=== PATIENT | female | born 1950 | race American Indian/Alaskan Native ===

== ENCOUNTER 2023-01-29 21:21 | Emergency (ER) | payer MEDICARE, MEDICAID, SELFPAY ==
[2023-01-29] VITALS (9 sets, daily range): BP systolic 138–200; BP diastolic 64–100; PULSE 71–98; RESP 20–27; TEMP 37; O2SAT 95–98; BMI 41.0
[2023-01-29] MEDS: FAMOTIDINE 20 MG/2 ML VIAL IV (21:41)
[2023-01-29] MEDS: diphenhydrAMINE 50 MG/ML VIAL (21:44)
[2023-01-29] MEDS: DEXAMETHASONE 10 MG/ML VIAL IV (21:48)
--- NOTE | 2023-01-29 22:27 | ED.ALLEREA ---
HPI - Allergic Reaction General Chief complaint: Allergic Reaction Stated complaint: possible allergic rxn, throat closing Time Seen by Provider: 01/29/23 21:42 Source: patient Mode of arrival: Ambulatory History of Present Illness HPI narrative: 72-year-old female nonsmoker without significant chronic medical history presents with family in the chief complaint of a sensation of swelling in her throat. She denies any runny nose or throat pain. She is had no rash no trouble breathing no face, tongue or lip swelling. She denies any new foods or lotions, no bee stings or insect bites. She is never had a reaction like this in the past. She states that she felt some odd sensation on her lips earlier today and then was eating some [place] food with a family member and soon thereafter felt a globus sensation in her throat. She denies any chance that something may have become stuck in her throat. She has been able to drink water without difficulty. Related Data Allergies Allergy/AdvReac Type Severity Reaction Status Date / Time Sulfa (Sulfonamide Allergy Wheezing Verified 01/29/23 21:28 Antibiotics) Review of Systems Review of Systems Narrative: GENERAL: Denies chills, fatigue, malaise, fever, sweats. HEENT: See HPI RESPIRATORY: Denies dyspnea, cough, wheezing, hemoptysis, sputum. CARDIOVASCULAR: Denies chest pain, palpitations, orthopnea, edema, GASTROINTESTINAL: Denies nausea, vomiting, abdominal pain, diarrhea, constipation, melena. : Denies dysuria, frequency, incontinence, hematuria, urinary retention. MUSCULOSKELETAL: denies weakness, joint pain, or bony pain SKIN: Denies rash, skin lesions, or other NEUROLOGIC: Denies weakness, headache, numbness, change in speech, confusion, seizures, incoordination. PSYCHIATRIC: No concerning psychosocial issues. 12 point review of systems is negative except for those stated above Patient History Social History Smoking Status: Never smoker Smoking Status: Never smoker Substance Use Type: marijuana Exam Narrative Exam Narrative: GENERAL: [72] year old patient appears stated age. Well-developed patient, in mild distress. HEAD: Atraumatic. Normocephalic. EYES: Pupils equal round and reactive. Extraocular motions intact. No scleral icterus. No injection or drainage. ENT: No face, tongue or lip swelling, moist mucous membranes, airway patent Nose without bleeding, purulent drainage. Throat without erythema, tonsillar hypertrophy or exudate. Airway patent. NECK: Trachea midline. Non tender CARDIOVASCULAR: Regular rate and rhythm without murmurs, gallops, or rubs. RESPIRATORY: Clear to auscultation. Breath sounds equal bilaterally. No wheezes, rales, or rhonchi. GASTROINTESTINAL: Abdomen soft, non-tender, nondistended. EXTREMITIES: No edema or joint tenderness. BACK: Nontender without deformity or crepitance. No flank tenderness. NEURO: AOx3. SKIN: No rash or erythema of visible areas, no hives Initial Vital Signs Initial Vital Signs: Vital Signs Temperature 98.6 F 01/29/23 21:24 Pulse Rate 98 H 01/29/23 21:24 Respiratory Rate 20 01/29/23 21:24 Blood Pressure 200/95 H 01/29/23 21:24 Pulse Oximetry 97 01/29/23 21:24 Oxygen Delivery Method Room Air 01/29/23 21:24 Course Orders Ordered: ED Orders 01/30/23 00:47 XR soft tissue neck Stat Discontinued Medications Dexamethasone (Dexamethasone 10 Mg/Ml Vial) 10 mg IV NOW ONE Stop: 01/29/23 21:43 Last Admin: 01/29/23 21:48 Dose: 10 mg Documented By: ANDREW Vital Signs Vital signs: Vital Signs - 8 hr 01/29/23 21:24 01/29/23 21:41 01/29/23 21:43 Temperature 98.6 F Pulse Rate 98 H 92 H Respiratory Rate 20 25 H Blood Pressure 200/95 H 174/100 H Pulse Oximetry 97 98 Oxygen Delivery Method Room Air 01/29/23 21:43 01/29/23 22:00 01/29/23 22:00 Temperature Pulse Rate 91 H 85 Respiratory Rate 24 25 H Blood Pressure 172/86 H Pulse Oximetry 96 97 Oxygen Delivery Method 01/29/23 22:13 01/29/23 22:13 01/29/23 22:30 Temperature Pulse Rate 83 Respiratory Rate 23 Blood Pressure 180/88 H 181/76 H Pulse Oximetry 97 Oxygen Delivery Method 01/29/23 22:30 01/29/23 22:38 01/29/23 23:00 Temperature Pulse Rate 81 81 Respiratory Rate 24 20 Blood Pressure 160/74 H Pulse Oximetry 97 97 Oxygen Delivery Method 01/29/23 23:00 01/30/23 01:00 01/29/23 23:30 Temperature Pulse Rate 76 80 Respiratory Rate 22 20 Blood Pressure 159/70 H 138/64 Pulse Oximetry 96 97 Oxygen Delivery Method Room Air 01/29/23 23:30 01/30/23 00:00 01/30/23 00:00 Temperature Pulse Rate 71 61 Respiratory Rate 27 H 23 Blood Pressure 133/60 Pulse Oximetry 95 95 Oxygen Delivery Method 01/30/23 00:30 01/30/23 00:30 01/30/23 01:01 Temperature Pulse Rate 64 60 Respiratory Rate 21 Blood Pressure 133/63 Pulse Oximetry 97 97 Oxygen Delivery Method 01/30/23 01:30 01/30/23 02:00 Temperature Pulse Rate 59 L 57 L Respiratory Rate 21 23 Blood Pressure 136/60 Pulse Oximetry 94 94 Oxygen Delivery Method MDM - Allergic Reaction MDM Narrative Medical decision making narrative: CC: 72-year-old female with swelling sensation in her throat Complicating co-morbidities: Age Data collected from: Patient Medical records reviewed: Prior notes reviewed in our EMR Differential considered, but not limited to: Allergic reaction versus pharyngitis versus foreign body versus other Exam documented above, pertinent findings include: No tongue, lip, face swelling, no wheezing or difficulty breathing, no rash Independently reviewed EKG as above Imaging studies independently reviewed: Soft tissue of the neck without abnormal findings Treatments: Dexamethasone, Pepcid, diphenhydramine Re-evaluations: Patient resting comfortably for duration of visit, certainly no evolution of symptoms Discussion: Patient presents with a sensation of fullness in her throat in the absence of other allergic-type symptoms, she is tolerating orals without difficulty, no respiratory distress, no rash, no GI symptoms. Her airway is patent, she is controlling secretions. Imaging without any significant findings. No signs of anaphylaxis. Patient denies any sensation of food bolus or temporal relationship between eating and this. Patient is appropriate for discharge, will give allergic reaction instructions Disposition: see below, along with detailed discharge instructions that have been reviewed with patient as well as indications for ED re-evaluation and additional outpatient follow up Discharge Plan Departure Patient Disposition: Home Clinical Impression: Allergic reaction Instructions: DI for General Allergic Reactions Activity Restrictions/Additional Instructions: *You have been diagnosed with [allergic reaction] *What to do: *Please continue to take your regular medications as directed. *Please consider the routine use of over the counter antihistamines over the next few days 1. H1 blockers: Benadryl (Diphenhydramine), Zyrtec (Cetirizine), Ania (Fexofenadine) or Claritin (Loratadine) along with, 2. H2 blockers: Famotidine or Cimetidine *If you can please avoid what triggered your reaction today *Please follow up with your primary care provider in 2-3 days, call for an appointment. Let them know you were seen in the Emergency Department and that we ask that you be seen in follow up. We will electronically transmit a record of today's note if your PCP is in our system *If you do not have a primary care provider please contact the [facility] Resource line at [phone]. They will ask some questions about your medical history and help get you set up with a doctor in the community. *Return to Emergency Department if you should have any new, worsening or concerning symptoms, such as swelling of tongue, throat, trouble breathing, or other concerning symptoms Stand Alone Forms: Patient Portal/API
[2023-01-30] VITALS: BP 133/60; PULSE 61; RESP 23; O2SAT 95
[2023-01-30 00:30] VITALS: BP 133/63; PULSE 64; RESP 21; O2SAT 97
--- NOTE | 2023-01-30 00:47 | DI.RAD.S_ITS ---
PROCEDURE: XR SOFT TISSUE NECK INDICATIONS: globus sensation in throat TECHNIQUE: 2 views of the neck were acquired. COMPARISON: None. FINDINGS: Airway: The airway appears patent. Soft tissues: Prevertebral soft tissues are normal in thickness. The epiglottis and aryepiglottic folds appear normal. No soft tissue gas. The airway appears patent. No radiopaque foreign bodies. Bones: No suspicious bony lesions. Visualized cervical spine demonstrates multilevel degenerative disc disease and facet joint arthropathy. IMPRESSION: 1. No radiopaque foreign body. 2. Airway appears patent. Dictated by: Dusty Wilkerson M.D. on 01/30/2023 at 1:49 Approved by: Dusty Wilkerson M.D. on 01/30/2023 at 1:50
[2023-01-30 01:00] VITALS: BP 159/70; PULSE 80; RESP 20; O2SAT 97
[2023-01-30 01:01] VITALS: PULSE 60; O2SAT 97
[2023-01-30 01:30] VITALS: BP 136/60; PULSE 59; RESP 21; O2SAT 94
[2023-01-30 02:00] VITALS: PULSE 57; RESP 23; O2SAT 94
== END 2023-01-30 02:36 | disposition home or self-care (01) ==
PROVIDERS: Emergency Provider Emergency Medicine
DX: T78.40XA Allergy, unspecified, initial encounter (principal); R20.2 Paresthesia of skin
CPT/HCPCS: 70360; 96374; 96375; 99284; J1100; J1200

== ENCOUNTER 2025-04-11 14:32 | Observation (INO) | payer MEDICARE, MEDICAID, SELFPAY ==
[2025-04-11] VITALS (15 sets, daily range): BP systolic 118–187; BP diastolic 56–99; PULSE 69–114; RESP 16–27; TEMP 35.9–36.8; O2SAT 95–99; BMI 42.9
[2025-04-11] MEDS: EPINEPHrine 1 MG/ML 0.3 MG IM (14:41)
[2025-04-11] MEDS: FAMOTIDINE 20 MG/2 ML VIAL IV (14:41)
[2025-04-11] MEDS: methylPREDNISolone succ 125 MG/2 ML VIAL IV (14:42)
--- NOTE | 2025-04-11 14:44 | ED_ITS ---
HPI - Allergic Reaction General Chief complaint: Allergic Reaction Stated complaint: allergic reaction Time Seen by Provider: 04/11/25 14:32 History of Present Illness HPI narrative: Ms. 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 She is allergic to crab, mushroom, sulfa antibiotics. Patient was eating a Thanksgiving meal when she started developing swelling sensation in her throat, hives on her abdomen and back and shortness of breath. Reports that she has experienced these symptoms in the past due to food allergy, she is unsure what food may have triggered it today but possibly stuffing. Stated that she hoped the symptoms would go away on their own however they did not so EMS was called. She received 50 mg of oral Benadryl and 0.3 mg IM epinephrine via EMS she then received a second 0.3 mg IM epinephrine 5 minutes later. Her symptoms improved significantly, hives resolved and breathing normalized. However since coming into the emergency department from the ambulance bay her symptoms have started to return, it has now been 2.5 hours since the food allergen was consumed. At this time she is speaking in clear sentences, she does have some audible inspiratory wheezing and she does have urticaria on her abdomen. She reports that she was in her normal state of health prior to the consumption of the food allergen and she was not experiencing any chest pain, shortness of breath or flu-like symptoms. She denies chest pain, abdominal pain, fevers, chills, dysuria, constipation, diarrhea, nausea, vomiting. Reports that she has not had an episode like this in over a year. She does not smoke cigarettes or drink alcohol. Related Data Home Medications ?Medication ?Instructions ?Recorded ?Confirmed albuterol sulfate 90 mcg/actuation 2 puff inhalation Q 4H PRN 04/11/25 04/11/25 aerosol inhaler (Ventolin HFA) shortness of breath or wheezing ergocalciferol (vitamin D2) 1,250 1,250 mcg PO QWEEK 1 06/11/24 04/11/25 mcg (50,000 unit) capsule (Vitamin D2) lisinopril 5 mg tablet 10 mg PO .QD Hypertension 04/11/25 mupirocin 2 % topical ointment 1 applic topical .QD Cu t on wrists 04/11/25 04/11/25 Allergies Allergy/AdvReac Type Severity Reaction Status Date / Time crab Allergy Unknown Verified 04/11/25 14:40 mushroom Allergy Unknown Verified 04/11/25 14:40 Sulfa (Sulfonamide Allergy Wheezing Verified 04/11/25 14:40 Antibiotics) Review of Systems Review of Systems ROS Unobtainable: All systems reviewed & are unremarkable except as noted in HPI and below Patient History Social History household members: none Smoking Status: Never smoker alcohol intake: never Exam Narrative Exam Narrative: GENERAL: 75 year old patient appears stated age. Obese patient, in mild distress, speaking in clear full sentences and protecting her own airway. HEAD: Atraumatic. Normocephalic. EYES: No scleral icterus. No injection or drainage. ENT: Uvula midline, posterior oropharynx clear. No lip tongue or face swelling. NECK: Trachea midline. Cervical ROM intact. No auditory stridor. CARDIOVASCULAR: Increased rate and regular rhythm. RESPIRATORY: ?Patient is breathing with increased rate. Audible inspiratory wheezing present. NEURO: Alert and oriented, answers all questions appropriately and is able to provide her own clear history. SKIN: Band of urticaria across the abdomen. Initial Vital Signs Initial Vital Signs: Vital Signs Pulse Rate 114 H 04/11/25 14:35 Pulse Oximetry 99 04/11/25 14:35 Course Orders Ordered: ED Orders 04/11/25 14:23 Magnesium Stat 04/11/25 14:27 CBC Auto Diff [Complete Blood Count AUTO DIFF] Stat CMP [Comprehensive Metabolic Panel] Stat Troponin & CK Cardiac Panel Stat 04/11/25 14:45 XR chest 1V Stat Albuterol (Albuterol 2.5 Mg/3 Ml Neb (Adult)) 2.5 mg INH [id number] PRN PRN Reason: home medication prn Diphenhydramine HCl (Diphenhydramine 25 Mg Tablet) 50 mg PO BEDTIME MONIKA Last Admin: 04/11/25 20:51 Dose: 50 mg Documented By: Lisinopril (Lisinopril 5 Mg Tablet) 10 mg PO DAILY MONIKA Last Admin: 04/11/25 18:36 Dose: Not Given Documented By: CEW Methylprednisolone (Methylprednisolone Succ 125 Mg/2 Ml Vial) 60 mg IV Q6HR [facility] Naloxone HCl (Naloxone 0.4 Mg/Ml Vial) 0.2 mg IV Q2MIN PRN PRN Reason: Opiate Reversal Discontinued Medications Albuterol (Albuterol 2.5 Mg/3 Ml Neb (Adult)) 2.5 mg INH [id number] [facility] Last Admin: 04/11/25 21:02 Dose: Not Given Documented By: MS Diphenhydramine HCl (Diphenhydramine 25 Mg Tablet) 50 mg PO 1999 [facility] Epinephrine HCl (Epinephrine 1 Mg/Ml) 0.3 mg IM NOW ONE Stop: 04/11/25 14:38 Last Admin: 04/11/25 14:41 Dose: 0.3 mg Documented By: BZ Famotidine (Famotidine 20 Mg/2 Ml Vial) 20 mg IV NOW [facility] Last Admin: 04/11/25 14:41 Dose: 20 mg Documented By: BZ Sodium Chloride (Normal Saline 0.9%) 500 mls @ 1,000 mls/hr IV BOLUS ONE Stop: 04/11/25 16:23 Last Infusion: 04/11/25 16:54 Dose: Infused Documented By: Admin: 04/11/25 16:18 Dose: 1,000 mls/hr Documented By: ES Methylprednisolone (Methylprednisolone Succ 125 Mg/2 Ml Vial) 125 mg IV NOW ONE Stop: 04/11/25 14:38 Last Admin: 04/11/25 14:42 Dose: 125 mg Documented By: KARENA Naproxen (Naproxen 250 Mg Tablet) 500 mg PO NOW ONE Stop: 04/11/25 20:10 Last Admin: 04/11/25 20:51 Dose: 500 mg Documented By: MS Vital Signs Vital signs: Vital Signs - 8 hr 04/11/25 14:54 04/11/25 14:54 04/11/25 15:00 Pulse Rate 91 H 88 Respiratory Rate 19 Blood Pressure 124/99 H Pulse Oximetry 99 98 04/11/25 15:01 04/11/25 15:01 04/11/25 15:15 Pulse Rate 89 Respiratory Rate 23 Blood Pressure 126/60 136/57 L Pulse Oximetry 98 04/11/25 15:15 04/11/25 15:30 04/11/25 15:30 Pulse Rate 90 86 Respiratory Rate 27 H 22 Blood Pressure 132/59 L Pulse Oximetry 97 98 04/11/25 15:45 04/11/25 15:45 04/11/25 16:00 Pulse Rate 83 81 Respiratory Rate 24 23 Blood Pressure 125/58 L Pulse Oximetry 98 97 04/11/25 16:00 04/11/25 16:15 04/11/25 16:15 Pulse Rate 81 Respiratory Rate 24 Blood Pressure 119/59 L 124/56 L Pulse Oximetry 98 MDM - Allergic Reaction Medical Records Attestation: I reviewed the patient's medical records. Lab Data 04/11/25 14:27 04/11/25 14:27 Labs: Lab Results 04/11/25 04/11/25 Range/Units 14:23 14:27 WBC 10.6 (4.5-11.0) X10^3/uL RBC 4.86 (4.0-5.2) X10^6/uL Hgb 13.5 (12.0-16.0) g/dL Hct 40.8 (36-46) % MCV 84.0 (80-100) fL MCH 27.8 (26-34) PG MCHC 33.1 (30-36) % RDW 14.6 (11.6-14.8) % Plt Count 367 (150-400) X10^3/uL Neut % (Auto) 59.4 (50-75) % Lymph % (Auto) 31.2 (25-40) % Dent % (Auto) 5.2 (3-14) % Eos % (Auto) 3.7 (2-4) % Baso % (Auto) 0.5 (0-2) % Neut # (Auto) 6300 (2019-3002) /uL Lymph # (Auto) 3300 (2504-8297) /uL Dent # (Auto) 600 (0-900) /uL Eos # (Auto) 400 (0-450) /uL Baso # (Auto) 100 (0-100) /uL Sodium 143 (137-145) mmol/L Potassium 3.2 L (3.4-5.1) mmol/L Chloride 107 (98-107) mmol/L Carbon Dioxide 23 (22-32) mmol/L BUN 20 H (7-17) mg/dL Creatinine 1.07 H (0.52-1.04) mg/dL Estimated GFR 54 L (>60) mL/min BUN/Creatinine Ratio 18.7 (6-22) Glucose 200 H (70-99) mg/dL Calcium 9.2 (8.4-10.2) mg/dL Magnesium 1.8 (1.6-2.3) mg/dL Total Bilirubin 0.6 (0.2-1.3) mg/dL AST 52 H (14-36) IU/L ALT 31 (<35) IU/L Alkaline Phosphatase 143 H (38-126) U/L Total Creatine Kinase 115 (30-135) U/L Troponin I < 0.012 (0.01-0.034) ng/mL Total Protein 7.4 (6.3-8.2) g/dL Albumin 4.5 (3.5-5.0) g/dL Globulin 2.9 (1.7-4.1) g/dL Albumin/Globulin Ratio 1.6 (1.0-2.8) Imaging Data Chest x-ray: Radiologist's Impression: PROCEDURE: XR CHEST 1V INDICATIONS: allergic reaction TECHNIQUE: One view of the chest was acquired. COMPARISON: None. FINDINGS: Surgical changes and devices: None. Lungs and pleura: Lungs are clear. No pleural effusions or pneumothorax. Mediastinum: Mediastinal contours appear normal. Heart size is normal. Bones and chest wall: No suspicious bony lesions. Overlying soft tissues appear unremarkable. IMPRESSION: No acute cardiopulmonary abnormality is seen. Approved by: Miguel Villatoro M.D. on 04/11/2025 at 15:18 ECG Data Interpretation: ECG reveals sinus rhythm with occasional PVCs with a rate of 94 beats per minute. QTC is 475. Left axis deviation. No prior EKGs available. 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 Differential diagnosis includes but is not limited to anaphylaxis, allergic reaction, angioedema, etc. On exam the patient is in mild distress with increased respiratory rate but is protecting her own airway. VS reveal elevated BP 187/83, HR 90, RR 22, temp 97.8, O2 98 on RA. She has received 0.3 mg IM epinephrine twice via EMS, 500 mL IV fluids, 50 mg p.o. Benadryl. Case immediately discussed with the attending physician Dr. Cronin. Her symptoms had resolved but are now starting to come back we will treat again with 0.3 mg IM epinephrine, 125 IV Solu-Medrol, 20 mg IV Pepcid. 1455: Examined patient shortly after receiving medications. Auditory inspiratory wheezing has resolved, lung trinh are clear to auscultation and no stridor is auscultated. She still feels as though she has raspy voice. 1510: Patient in no acute distress, vital signs within normal limits. Labs reveal normal WBC count 10.6, hemoglobin 13.5 hematocrit 40.8. Platelets 367. CMP does reveal normal sodium 143 with a decreased potassium 3.2, elevated BUN 20 creatinine 1.07 with a GFR 54, no prior labs available. Glucose 200. Slight elevation AST 52 alkaline phosphatase 143. Troponin is undetectable. Chest x-ray reveals no acute cardiopulmonary abnormality. 1545: About 1 hour after last epi dose, patient is resting at this time. Discussed with attending Dr. Nair, will call for admission for patient due to multiple required doses of epi. 1625: Discussed case with hospitalist Dr. Angeles, who graciously agrees to admit the patient to observation for anaphylaxis requiring 3 doses of IM epinephrine. Patient is stable at this time, up-to-date on care of plan, agreeable to admission and stable for transfer to the floor. Discharge Plan Departure Patient Disposition: Admitted as Observation Clinical Impression: Hypokalemia Anaphylaxis Qualifiers: Encounter type: initial encounter Qualified Code(s): T78.2XXA - Anaphylactic shock, unspecified, initial encounter Admit Date/Time: 04/11/25 16:24 Admit Provider: Oscar Angeles
[2025-04-11 15:05] LABS: Add Manual Diff / Slide Review NO; Hematocrit 40.8 % (36-46); Hemoglobin 13.5 g/dL (12.0-16.0); Lymphocytes Absolute Auto 3300 /uL (1100-4500); Mean Corpuscular HGB Conc 33.1 % (30-36); Mean Corpuscular Hemoglobin 27.8 PG (26-34); Mean Corpuscular Volume 84.0 fL (80-100); Platelet Count 367 X10^3/uL (150-400)
--- NOTE | 2025-04-11 15:05 | PC.NURSE ---
Pt presents with sob and wheezing, diffuse hives to abdomen and back, and dizziness while ambulating from EMS stretcher. Pt denies any chest pain or nausea. Hives are red, inflamed and itchy. Endorses feeling slightly better after IV meds and third epi injection.
[2025-04-11 15:19] LABS: Alanine Aminotransferase 31 IU/L (<35); Albumin 4.5 g/dL (3.5-5.0); Albumin Globulin Ratio 1.6 (1.0-2.8); Alkaline Phosphatase 143 U/L (38-126); Blood Urea Nitrogen 20 mg/dL (7-17); Calcium 9.2 mg/dL (8.4-10.2); Carbon Dioxide 23 mmol/L (22-32); Chloride 107 mmol/L (98-107); Creatine Kinase 115 U/L (30-135); Estimated Glomerular Filt Rate 54 mL/min (>60); Globulin 2.9 g/dL (1.7-4.1); Glucose 200 mg/dL (70-99); HEMOLYSIS < 15 (0-50); Potassium 3.2 mmol/L (3.4-5.1); Sodium 143 mmol/L (137-145); Total Protein 7.4 g/dL (6.3-8.2)
[2025-04-11 15:30] LABS: Troponin I < 0.012 ng/mL (0.01-0.034)
[2025-04-11 15:42] LABS: Magnesium 1.8 mg/dL (1.6-2.3)
[2025-04-11] MEDS: SODIUM CHLORIDE 0.9% 500 ML 1000 ML IV (16:18)
--- NOTE | 2025-04-11 17:50 | PM.HP.1 ---
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 She had a Thanksgiving dinner with family today and then developed acute urticaria followed by wheezing and facial swelling. She received 2 doses of epinephrine in the field and another in the emergency department. She was also given steroids and Pepcid. She had no angioedema of the lips or tongue. She does have a lifelong history of asthma but has never been allergy tested in the past. There was no obvious shellfish it or mushrooms and her meal today, although she was wondering about the suffering. She was mostly improved upon arrival to the [facility]. She was visiting from [facility]. ROS: All else reviewed and otherwise unremarkable except as noted in the history and physical. NAD, alert and oriented, fluent speech, calm. No urticaria or angioedema. Normocephalic skull, EOMI, anicteric sclera, symmetric pupils. Oropharynx unremarkable, no droop. Neck supple, midline trachea, no adenopathy. Lungs with mild wheezing, normal rate and effort. Heart regular, no murmur gallop or rub. Abdomen is soft, non distended and non tender. Extremities are free of edema. Skin is free of rash or lesions. Joints are not swollen or deformed. Judgment appears to be normal. IMAGING: CXR: clear. A/P: 1. Severe allergic reaction with urticaria and angioedema, improving. 2. Asthma with lab mild exacerbation, active. 3. Hypertension, active. 4. Morbid obesity with BMI of 42, active. PLAN: -Benadryl q.6 hours, 50 p.o.. -methylprednisolone 60 mg q.6 hours. -telemetry. -Albuterol nebulizers as needed. -continue lisinopril per her request. Anticipate 1 night in the hospital, supports observation status. Full resuscitation. [facility] Social History household members: none Smoking Status: Never smoker alcohol intake: never Meds Home Medications and Allergies Home Medications ?Medication ?Instructions ?Recorded ?Confirmed ?Type albuterol sulfate 90 mcg/actuation 2 puff inhalation Q4H PRN 04/11/25 04/11/25 History aerosol inhaler (Ventolin HFA) shortness of breath or wheezing ergocalciferol (vitamin D2) 1,250 1,250 mcg PO QWEEK 04/11/25 04/11/25 History mcg (50,000 unit) capsule (Vitamin D2) lisinopril 5 mg tablet 10 mg PO .QD Hypertension 04/11/25 04/11/25 History mupirocin 2 % topical ointment 1 applic topical .QD Cut on wrists 04/11/25 04/11/25 History Allergies Allergy/AdvReac Type Severity Reaction Status Date / Time crab Allergy Unknown Verified 04/11/25 14:40 mushroom Allergy Unknown Verified 04/11/25 14:40 Sulfa (Sulfonamide Allergy Wheezing Verified 04/11/25 14:40 Antibiotics) Exam Vital Signs (past 8 hours): - 04/11/25 14:35 04/11/25 14:39 04/11/25 14:54 Temperature 97.8 F Pulse Rate 114 H 90 91 H Respiratory Rate 22 Blood Pressure 187/83 H Pulse Oximetry 99 98 99 Oxygen Delivery Method Room Air 04/11/25 14:54 04/11/25 15:00 04/11/25 15:01 Temperature Pulse Rate 88 Respiratory Rate 19 Blood Pressure 124/99 H 126/60 Pulse Oximetry 98 Oxygen Delivery Method 04/11/25 15:01 04/11/25 15:15 04/11/25 15:15 Temperature Pulse Rate 89 90 Respiratory Rate 23 27 H Blood Pressure 136/57 L Pulse Oximetry 98 97 Oxygen Delivery Method 04/11/25 15:30 04/11/25 15:30 04/11/25 15:45 Temperature Pulse Rate 86 Respiratory Rate 22 Blood Pressure 132/59 L 125/58 L Pulse Oximetry 98 Oxygen Delivery Method 04/11/25 15:45 04/11/25 16:00 04/11/25 16:00 Temperature Pulse Rate 83 81 Respiratory Rate 24 23 Blood Pressure 119/59 L Pulse Oximetry 98 97 Oxygen Delivery Method 04/11/25 16:15 04/11/25 16:15 04/11/25 16:30 Temperature Pulse Rate 81 87 Respiratory Rate 24 23 Blood Pressure 124/56 L Pulse Oximetry 98 99 Oxygen Delivery Method 04/11/25 16:30 04/11/25 16:45 04/11/25 16:45 Temperature Pulse Rate 90 Respiratory Rate Blood Pressure 150/69 H 153/72 H Pulse Oximetry 97 Oxygen Delivery Method 04/11/25 16:50 Temperature 96.6 F L Pulse Rate 89 Respiratory Rate 18 Blood Pressure 154/69 H Pulse Oximetry 96 Oxygen Delivery Method Oxygen Delivery Method Room Air Objective Labs 04/11/25 14:27 04/11/25 14:27 Labs: Laboratory Results - last 24 hr 04/11/25 04/11/25 14:23 14:27 WBC 10.6 RBC 4.86 Hgb 13.5 Hct 40.8 MCV 84.0 MCH 27.8 MCHC 33.1 RDW 14.6 Plt Count 367 Neut % (Auto) 59.4 Lymph % (Auto) 31.2 [place] % (Auto) 5.2 Eos % (Auto) 3.7 Baso % (Auto) 0.5 Neut # (Auto) 6300 Lymph # (Auto) 3300 [place] # (Auto) 600 Eos # (Auto) 400 Baso # (Auto) 100 Sodium 143 Potassium 3.2 L Chloride 107 Carbon Dioxide 23 BUN 20 H Creatinine 1.07 H Estimated GFR 54 L BUN/Creatinine Ratio 18.7 Glucose 200 H Calcium 9.2 Magnesium 1.8 Total Bilirubin 0.6 AST 52 H ALT 31 Alkaline Phosphatase 143 H Total Creatine Kinase 115 Troponin I < 0.012 Total Protein 7.4 Albumin 4.5 Globulin 2.9 Albumin/Globulin Ratio 1.6 Assessment & Plan Time-Based Coding :: [TOTAL MINUTES] spent with patient and on the chart (including review of chart, obtaining history, exam, reviewing outside data, placing orders, documenting exam and treatment plan, and counseling patient) on [DATE]. Quality VTE Deep Vein Thrombosis/Pulmonary Embolism Present on Admission: No
--- NOTE | 2025-04-11 19:22 | RT ---
Pt home medication is Albuterol Q4PRN and asked to change from scheduled neb to prn. Pt 96% RA, 89 HR, 18 RR crackles at the bases. Pt states she will call if needs a treatment.
[2025-04-11] MEDS: diphenhydrAMINE 25 MG TABLET 50 MG PO (20:51)
[2025-04-11] MEDS: NAPROXEN 250 MG TABLET 500 MG PO (20:51)
[2025-04-12 04:00] VITALS: BP 150/81; PULSE 76; RESP 22; TEMP 36.6; O2SAT 97
--- NOTE | 2025-04-12 04:22 | PC.NURSE ---
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 Notified Night hospitalist and got a verbal ok to leave IV out until discharge. research biostatistician aware.
[2025-04-12 08:00] VITALS: BP 112/58; PULSE 68; RESP 16; TEMP 36.6; O2SAT 97
--- NOTE | 2025-04-12 08:26 | PM.DS.1 ---
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 She had a Thanksgiving dinner with family today and then developed acute urticaria followed by wheezing and facial swelling. She received 2 doses of epinephrine in the field and another in the emergency department. She was also given steroids and Pepcid. She had no angioedema of the lips or tongue. She does have a lifelong history of asthma but has never been allergy tested in the past. There was no obvious shellfish it or mushrooms and her meal today, although she was wondering about the suffering. She was mostly improved upon arrival to the [facility]. She was visiting from [facility]. [N], the patient has documentation of a left ventricle ejection fracture less than or equal to 40%, or moderately or severely reduced left ventricle systolic function. [N], the patient has a history of heart transplant or left ventricular assist device (LVAD). [N], the patient was prescribed an RAMY inhibitor at discharge or is already being taken. The patient was not prescribed an RAMY-inhibitor because of the following exception: NA [N], the patient was prescribed Metoprolol succinate, bisoprolol, or carvedilol at discharge. The patient was not prescribed Metoprolol succinate, bisoprolol, or carvedilol at discharge because of the following exception: NA Anticipate 1 night in the hospital, supports observation status. Full resuscitation. Discharge Providers Provider Date of admission: 04/11/25 16:24 Discharge Date: 04/12/25 Consults: None Discharge provider: Oscar Angeles MD Summary Hospital Course Discharge Diagnosis: 1. Severe allergic reaction with urticaria and angioedema, improving. 2. Asthma with lab mild exacerbation, active. 3. Hypertension, active. 4. Morbid obesity with BMI of 42, active. Hospital Course: She was admitted and treated with steroids and Benadryl. She improved overnight. On the morning of discharge her lungs were clear and she had no other symptoms. She was stable for discharge home. She will take oral prednisone for 4 more days in his given a prescription for EpiPen. She will follow up with her PCP next Thursday to catch them up and recheck her blood pressures. Status at Discharge Cognitive/behavioral status at discharge: oriented Functional status at discharge: independent ambulation Overall status at discharge: patient is back to baseline Time Spent with Patient Time spent: Greater than 30 minutes Exam Vital Signs (past 8 hours): - 04/12/25 04:00 Temperature 98 F Pulse Rate 76 Respiratory Rate 22 Blood Pressure 150/81 H Pulse Oximetry 97 Oxygen Flow Rate 0 Oxygen Delivery Method Room Air Oxygen Flow Rate 0 Narrative Exam Narrative: NAD, alert and oriented. Fluent speech. Lungs are clear, normal rate and effort. Heart is regular, no murmur gallop or rub. Abdomen is soft, non distended. Extremities are free of edema. Objective Imaging Chest x-ray: Radiologist's impression: Clear Labs 04/11/25 14:27 04/11/25 14:27 Labs: Laboratory Results - last 24 hr 04/11/25 04/11/25 14:23 14:27 WBC 10.6 RBC 4.86 Hgb 13.5 Hct 40.8 MCV 84.0 MCH 27.8 MCHC 33.1 RDW 14.6 Plt Count 367 Neut % (Auto) 59.4 Lymph % (Auto) 31.2 [place] % (Auto) 5.2 Eos % (Auto) 3.7 Baso % (Auto) 0.5 Neut # (Auto) 6300 Lymph # (Auto) 3300 [place] # (Auto) 600 Eos # (Auto) 400 Baso # (Auto) 100 Sodium 143 Potassium 3.2 L Chloride 107 Carbon Dioxide 23 BUN 20 H Creatinine 1.07 H Estimated GFR 54 L BUN/Creatinine Ratio 18.7 Glucose 200 H Calcium 9.2 Magnesium 1.8 Total Bilirubin 0.6 AST 52 H ALT 31 Alkaline Phosphatase 143 H Total Creatine Kinase 115 Troponin I < 0.012 Total Protein 7.4 Albumin 4.5 Globulin 2.9 Albumin/Globulin Ratio 1.6 [facility] Social History household members: none Smoking Status: Never smoker alcohol intake: never Discharge Assessment & Plan Assessment and Plan Plan of Treatment: Discharge home, prednisone 50 daily for 4 additional days. Continue other medications without change. An EpiPen Rx is also provided. Follow up with PCP next Thursday and continue to monitor blood pressures in the meantime. Discharge Plan Discharge Plan Patient Disposition: Home Provider Discharge Comment: Stable for discharge home. Discharge orders & Medications Prescriptions: New prednisone 50 mg tablet 50 mg PO DAILY 7 Days Qty: 4 0RF epinephrine 0.3 mg/0.3 mL auto-injector 0.3 ml IM Q5-15M PRN (Reason: allergic reaction) Qty: 2 0RF Rx Instructions: do not exceed 3 doses per episode Continued albuterol sulfate [Ventolin HFA] 90 mcg/actuation HFA aerosol inhaler 2 puff inhalation Q4H PRN (Reason: shortness of breath or wheezing) ergocalciferol (vitamin D2) [Vitamin D2] 1,250 mcg (50,000 unit) capsule 1,250 mcg PO QWEEK lisinopril 5 mg tablet 10 mg PO .QD mupirocin 2 % ointment 1 applic topical .QD Discharge Health Status Multidrug resistant organism: No MDRO Diet/Activity/Treatments Diet: Diet as Tolerated Visit Report/Discharge Packet Instructions: DI for Anaphylaxis Stand Alone Forms: Patient Portal/API Discharge Data Attending Provider: Oscar Angeles Admit Date/Time: 04/11/25 16:24 Quality VTE Deep Vein Thrombosis/Pulmonary Embolism Present on Admission: No
--- NOTE | 2025-04-12 09:18 | CM.DANOTE ---
Initial DCP Assessment Note. Review EMR and PT Interview. Met with patient at bedside to discuss discharge needs.PT is alert x 4 sitting up in bed. No acute distress. Independent. Lives alone. Payor:?[employer]? PCP: in [place], [place].? Summary & Plan:?75 y/o female arrived to ED via EMS c/o Allergic Reaction. Admitted OBS. Dx. Allergic Reaction, likely [employer]. Plan: PRN meds and observation. discharge home when improved. Discharge Planning/Care Management CM Discharge Assessment Start: 04/11/25 16:26 Freq: Status: Active Protocol: Document 04/12/25 09:15 (Rec: 04/12/25 09:18 [id number]) Discharge Planning Assessment Assigned Discharge Val Valero RN CM [employer] Provider in [place], [place] Insurance Medicare Advance Directives? No History Provided By Patient,Medical Record Has Patient been No admitted in last 30 days? Prior Living Apartment/Condo Arrangements Household Members none Type of Drives own vehicle transporation used prior to admit Independent with ADL Yes 's Is patient alert and Yes oriented? Caregiver for No Another Barriers to No Discharge Transportation German Vallecillo or friend Arrangement Referrals Initiated None needed Review Status In Process Please Provide Date 04/12/25 Initial DC Assessment Was Performed Next Review Type Continued Stay Review
--- NOTE | 2025-04-12 12:43 | PC.NURSE ---
Discharge: Pt feels ready to d/c to [facility]. She has a to attend and wasnt going to attend it yesterday but changed her mind. MD Angeles here and gave d/c instructions. Discharge packet given and reviewed. RX has been esent. Pt d/c to home via auto with friend.
== END 2025-04-12 10:16 | disposition home or self-care (01) ==
LOC: ED 16:24 → AC 16:25
PROVIDERS: Admitting Provider Hospitalist; Emergency Provider Physician Assistant; Referring Provider Physician Assistant; Visit Provider Hospitalist
DX: T78.00XA Anaphylactic reaction due to unspecified food, initial encounter (principal); J45.901 Unspecified asthma with (acute) exacerbation; I10 Essential (primary) hypertension; Z91.013 Allergy to seafood; Z88.2 Allergy status to sulfonamides; Z91.018 Allergy to other foods; E87.6 Hypokalemia; E66.01 Morbid (severe) obesity due to excess calories; Z68.41 Body mass index [BMI] 40.0-44.9, adult
CPT/HCPCS: 71045; 80053; 82550; 83735; 84484; 85025; 96361; 96372; 96374; 96375; 99283; 99284; G0378; J0165; J2919; J7040

== ENCOUNTER 2025-04-12 14:11 | Emergency (ER) | payer MEDICARE, MEDICAID, SELFPAY ==
[2025-04-11 17:24] VITALS: BMI 42.9
[2025-04-12 14:20] VITALS: BP 180/77; PULSE 70; RESP 16; TEMP 36.4; O2SAT 96; BMI 42.9
--- NOTE | 2025-04-12 15:46 | ED_ITS ---
HPI - Allergic Reaction <Malia Rojas PA-C - Last Filed: 04/12/25 19:35> General Chief complaint: Allergic Reaction Stated complaint: Allergic reaction on face today Time Seen by Provider: 04/12/25 14:30 Mode of arrival: Ambulatory History of Present Illness HPI narrative: Ms. Vallecillo is a pleasant 75-year-old female with a past medical history of HTN, allergies, admitted yesterday for anaphylaxis discharged this morning at 10:00 a.m. who presents to the emergency department for concern of facial redness and mild swelling since around 1-2pm. Patient was seen in the emergency department yesterday after having anaphylaxis to suspected food allergen. She received a total of 3 doses of IM epinephrine, Solu-Medrol, Pepcid, Benadryl. She was admitted for further monitoring. Patient was discharged from the hospital this morning around 10:00 a.m. States that she went to the pharmacy to picker packer her prednisone and actually started to feel like her face was getting red and swollen so she came straight to the emergency room. At this time she feels like her facial cheeks are red and swollen and she has some thickness with swallowing. She is not having any issues with breathing, no hives. Patient denies eating anything since being discharged from the hospital. However she does know that her lisinopril was increased in dose last week from 5-10 mg. Related Data Home Medications ?Medication ?Instructions ?Recorded ?Confirmed albuterol sulfate 90 mcg/actuation 2 puff inhalation Q 4H PRN 04/11/25 04/11/25 aerosol inhaler (Ventolin HFA) shortness of breath or wheezing ergocalciferol (vitamin D2) 1,250 1,250 mcg PO QWEEK 1 06/11/24 04/11/25 mcg (50,000 unit) capsule (Vitamin D2) mupirocin 2 % topical ointment 1 applic topical .QD Cu t on wrists 04/11/25 04/11/25 Previous Rx's ?Medication ?Instructions ?Recorded epinephrine 0.3 mg/0.3 mL 0.3 mg (0.3 mL) IM Q5-15M AL N 04/12/25 injection, auto-injector anaphylaxis #2 ea epinephrine 0.3 mg/0.3 mL 0.3 ml IM Q5-15M PRN allergi c 04/12/25 injection, auto-injector reaction #2 ea prednisone 50 mg tablet 50 mg PO DAILY 7 days #4 tab s 04/12/25 prednisone 50 mg tablet 50 mg PO DAILY 7 days #7 tab s 04/12/25 Allergies Allergy/AdvReac Type Severity Reaction Status Date / Time crab Allergy Unknown Verified 04/11/25 14:40 mushroom Allergy Unknown Verified 04/11/25 14:40 Sulfa (Sulfonamide Allergy Wheezing Verified 04/11/25 14:40 Antibiotics) Review of Systems <Malia Rojas PA-C - Last Filed: 04/12/25 19:35> Review of Systems ROS Unobtainable: All systems reviewed & are unremarkable except as noted in HPI and below Patient History <Malia Rojas PA-C - Last Filed: 04/12/25 19:35> Social History household members: none alcohol intake: never Exam <Malia Rojas PA-C - Last Filed: 04/12/25 19:35> Narrative Exam Narrative: GENERAL: 75 year old patient appears stated age. Well-developed patient, in no acute distress. HEAD: Atraumatic. Normocephalic. EYES: No scleral icterus. No injection or drainage. ENT: Uvula is midline oropharynx is patent. NECK: Trachea midline. Cervical ROM intact. No stridor auscultated CARDIOVASCULAR: Regular rate and rhythm. RESPIRATORY: ?Nonlabored respirations. ?Speaking in clear, full sentences. ?Clear to auscultation. Breath sounds equal bilaterally. No wheezes, rales, or rhonchi. ? NEURO: AOx3. ?Clear speech. ?Moves all 4 extremities appropriately. SKIN: Flushing of facial cheeks, no urticaria, no other rashes. Initial Vital Signs Initial Vital Signs: Vital Signs Temperature 97.6 F 04/12/25 14:20 Pulse Rate 70 04/12/25 14:20 Respiratory Rate 16 04/12/25 14:20 Blood Pressure 180/77 H 04/12/25 14:20 Pulse Oximetry 96 04/12/25 14:20 Oxygen Delivery Method Room Air 04/12/25 14:20 <Mariela Umana DO - Last Filed: 04/17/25 23:53> Initial Vital Signs Initial Vital Signs: Vital Signs Temperature 97.6 F 04/12/25 14:20 Pulse Rate 70 04/12/25 14:20 Respiratory Rate 16 04/12/25 14:20 Blood Pressure 180/77 H 04/12/25 14:20 Pulse Oximetry 96 04/12/25 14:20 Oxygen Delivery Method Room Air 04/12/25 14:20 Course <Malia Rojas PA-C - Last Filed: 04/12/25 19:35> Orders Ordered: Discontinued Medications Prednisone (Prednisone 20 Mg Tablet) 50 mg PO NOW ONE Stop: 04/12/25 14:36 Last Admin: 04/12/25 15:23 Dose: 50 mg Documented By: SALLY Vital Signs Vital signs: Vital Signs - 8 hr 04/12/25 14:20 04/12/25 16:11 04/12/25 17:16 Temperature 97.6 F Pulse Rate 70 60 61 Respiratory Rate 16 20 18 Blood Pressure 180/77 H 157/76 H Pulse Oximetry 96 98 98 Oxygen Delivery Method Room Air Room Air Room Air 04/12/25 18:13 Temperature 98.1 F Pulse Rate 68 Respiratory Rate 18 Blood Pressure 138/68 Pulse Oximetry 98 Oxygen Delivery Method Room Air <Mariela Umana DO - Last Filed: 04/17/25 23:53> Orders Ordered: Discontinued Medications Prednisone (Prednisone 20 Mg Tablet) 50 mg PO NOW ONE Stop: 04/12/25 14:36 Last Admin: 04/12/25 15:23 Dose: 50 mg Documented By: SALLY Vital Signs Vital signs: Vital Signs - 8 hr 04/12/25 14:20 04/12/25 16:11 04/12/25 17:16 Temperature 97.6 F Pulse Rate 70 60 61 Respiratory Rate 16 20 18 Blood Pressure 180/77 H 157/76 H Pulse Oximetry 96 98 98 Oxygen Delivery Method Room Air Room Air Room Air 04/12/25 18:13 Temperature 98.1 F Pulse Rate 68 Respiratory Rate 18 Blood Pressure 138/68 Pulse Oximetry 98 Oxygen Delivery Method Room Air MDM - Allergic Reaction <ANAY Whitley Last Filed: 04/12/25 19:35> Medical Records Attestation: I reviewed the patient's medical records. MDM Narrative Medical decision making narrative: 75-year-old female with a past medical history of HTN, allergies, admitted yesterday for anaphylaxis discharged this morning at 10:00 a.m. who presents to the emergency department for concern of facial redness and mild swelling since around 1-2pm. Differential diagnosis includes but isn't limited to allergic reaction, angioedema, etc. On exam patient is in no acute distress, nontoxic appearing, vital signs appropriate. She is not experiencing any urticaria, airway edema, angioedema, respiratory compromise or other symptoms concerning for anaphylaxis at this time. However she is having some flushing of her cheeks and reported sensation of increased effort with swallowing. Oropharynx is patent, no stridor or wheezing. We will treat with oral prednisone and reassess. 1800: After over 3 hours of observation, patient continues to be stable with no stridor, wheezing or respiratory compromise. She does report somewhat thick sensation with swallowing. Facial redness/swelling resolved. I did recent her prednisone and EpiPen 2 different pharmacy as [facility] is closed. Patient informed me today that her lisinopril was actually increased in dose about 1.5 weeks ago, therefore I did recommend that she discontinue lisinopril in the event that this is related at all to her anaphylaxis yesterday. Case discussed with attending Dr. Umana. Patient will be discharged home with prescriptions for prednisone and EpiPen x2. Lisinopril discontinued. Discussed strict ER return precautions. Patient verbalized understanding all information agreeable with the plan. She is stable for discharge home, all vital signs within normal limits. Discharge Plan Departure Patient Disposition: Home Clinical Impression: Facial swelling Instructions: DI for Anaphylaxis, DI for Adverse Drug Reaction -- Allergic Activity Restrictions/Additional Instructions: Dear Ms. Vallecillo, Thank you for coming to the emergency department. Today you were evaluated for swelling of her face and possible allergic reaction. You were treated with prednisone. I have sent your 7 additional days of prednisone to [facility] in addition to EpiPen. Talk to the pharmacist about using [employer] coupon if needed for cost. Please STOP taking Lisinopril in the event this has anything to do with your allergies. Please follow up with your primary care doctor soon as possible to talk about a new blood pressure medication. Please return to the emergency room if you develop any new or worsening symptoms, difficulty swallowing, speaking, breathing or other concerns. Please call 911 and use your EpiPen if these symptoms develop. Please follow up with your primary care doctor within the next 2-3 days for ER follow-up. (If you do not have a PCP you can call [phone]. ?to schedule an appointment with an [facility] Primary Care Provider) IF YOU DEVELOP ANY NEW OR WORSENING SYMPTOMS, RETURN TO THE ER! Please read the attached instructions, they highlight more specific treatments and interventions for you at home. Thank you for letting me participate in your care, Malia Rojas PA-C Prescriptions: New prednisone 50 mg tablet 50 mg PO DAILY 7 Days Qty: 7 0RF epinephrine 0.3 mg/0.3 mL auto-injector 0.3 mg IM Q5-15M PRN (Reason: anaphylaxis) Qty: 2 0RF Rx Instructions: do not exceed 3 doses per episode Discontinued lisinopril 5 mg tablet 10 mg PO .QD No Action albuterol sulfate [Ventolin HFA] 90 mcg/actuation HFA aerosol inhaler 2 puff inhalation Q4H PRN (Reason: shortness of breath or wheezing) ergocalciferol (vitamin D2) [Vitamin D2] 1,250 mcg (50,000 unit) capsule 1,250 mcg PO QWEEK mupirocin 2 % ointment 1 applic topical .QD prednisone 50 mg tablet 50 mg PO DAILY 7 Days Qty: 4 0RF epinephrine 0.3 mg/0.3 mL auto-injector 0.3 ml IM Q5-15M PRN (Reason: allergic reaction) Qty: 2 0RF Rx Instructions: do not exceed 3 doses per episode Stand Alone Forms: Patient Portal/API ED Sign-out <Mariela Umana DO - Last Filed: 04/17/25 23:53> Cosign ED Attending Coslivanature Attestation: I was immediately available in the department for consultation. Case was discussed with myself.
[2025-04-12 16:11] VITALS: BP 157/76; PULSE 60; RESP 20; O2SAT 98
[2025-04-12 17:16] VITALS: PULSE 61; RESP 18; O2SAT 98
[2025-04-12 18:13] VITALS: BP 138/68; PULSE 68; RESP 18; TEMP 36.7; O2SAT 98
== END 2025-04-12 18:15 | disposition home or self-care (01) ==
PROVIDERS: Emergency Provider Physician Assistant
DX: R22.0 Localized swelling, mass and lump, head (principal)
CPT/HCPCS: 99283